=== PATIENT | female | born 1990 | race Caucasian/White ===

== ENCOUNTER 2018-11-04 20:40 | Emergency (ER) | payer SELFPAY ==
--- NOTE | 2018-11-04 21:23 | EDM.PDOC ---
ED HPI GENERAL MEDICAL PROBLEM - General Chief Complaint: Abdominal Pain Stated Complaint: ABD PAIN Time Seen by Provider: 11/04/18 21:19 Source of Information: Reports: Patient, Family History Limitations: Reports: No Limitations - History of Present Illness INITIAL COMMENTS - FREE TEXT/NARRATIVE: C/p positive test yesterday.has had abd cramps on and off. No bleeding or urinary symptoms.has a previous bad obstetric history (including septic emboli in the pelvis,GDM and is therefore worried. - Related Data Allergies Allergy/AdvReac Type Severity Reaction Status Date / Time No Known Allergies Allergy Verified 11/04/18 20:47 Home Meds: Home Meds NK [No Known Home Meds] 11/04/18 [History] ED ROS GENERAL - Review of Systems Review Of Systems: ROS reveals no pertinent complaints other than HPI. ED EXAM, GI/ABD - Physical Exam Exam: See Below Exam Limited By: No Limitations General Appearance: Alert, WD/WN Ears: Normal External Exam Nose: Normal Inspection Head: Atraumatic Neck: Normal Inspection Respiratory/Chest: No Respiratory Distress Cardiovascular: Normal Peripheral Pulses GI/Abdominal Exam: Normal Bowel Sounds, Non-Tender, No Distention Course - Vital Signs Last Recorded V/S: Last Vital Signs Temp 98.0 F 11/04/18 20:40 Pulse 65 11/04/18 20:40 Resp 17 11/04/18 20:40 BP 111/68 11/04/18 20:40 Pulse Ox 97 11/04/18 20:40 - Orders/Labs/Meds Labs: Laboratory Tests 11/04/18 11/04/18 Range/Units 20:51 20:51 Urine Color Yellow (YELLOW) Urine Appearance Clear (CLEAR) Urine pH 5.0 (5.0-6.5) Ur Specific [place] 1.025 (1.010-1.025) Urine Protein Negative (NEGATIVE) mg/dL Urine Glucose (UA) Normal (NORMAL) mg/dL Urine Ketones Negative (NEGATIVE) mg/dL Urine Occult Blood Moderate H (NEGATIVE) Urine Nitrite Negative (NEGATIVE) Urine Bilirubin Negative (NEGATIVE) Urine Urobilinogen Normal (NEGATIVE) mg/dL Ur Leukocyte Esterase Moderate H (NEGATIVE) Urine RBC 0-5 (0-5) Urine WBC 0-5 (0-5) Ur Squamous Epith Cells Moderate H (NS,R,O) Urine Bacteria Moderate H (NS) Urine HCG, Qual Positive H (NEGATIVE) Departure - Departure Time of Disposition: 21:21 Disposition: Home, Self-Care 01 Clinical Impression: - Discharge Information Referrals: PCP,None [Primary Care Provider] - - Problem List & Annotations (1) SNOMED Code(s): 23814576 Code(s): Z34.90 - ENCNTR FOR SUPRVSN OF NORMAL , UNSP, UNSP TRIMESTER Status: Acute Current Visit: Yes Qualifiers: Weeks of gestation: 8 weeks Qualified Code(s): Z3A.08 - 8 weeks gestation of - Problem List Review Problem List Initiated/Reviewed/Updated: Yes - Assessment/Plan Plan: Urine is positive for . Exam otherwise WNL. I recommend US tomorrow. Follow up with PCP.
== END 2018-11-04 21:27 | disposition home or self-care (01) ==
LOC: FB.ED 20:40
DX: Z34.91 Encounter for supervision of normal pregnancy, unspecified, first trimester (principal); Z87.59 Personal history of other complications of pregnancy, childbirth and the puerperium
CPT/HCPCS: 81001; 81025; 99284

== ENCOUNTER 2018-11-14 01:54 | Emergency (ER) | payer SELFPAY ==
[2018-11-14] MEDS ORDERED: Ciprofloxacin 500 MG Tab PO ONE ×2 (03:46→03:51)
[2018-11-14] MEDS ORDERED: Ketorolac 60 MG/2 ML SDV IM ONE (03:46)
--- NOTE | 2018-11-14 03:52 | EDM.PDOC ---
ED HPI GENERAL MEDICAL PROBLEM - General Chief Complaint: Abdominal Pain Stated Complaint: abdominal pain Time Seen by Provider: 11/14/18 01:54 Source of Information: Reports: Patient, Family History Limitations: Reports: No Limitations - History of Present Illness INITIAL COMMENTS - FREE TEXT/NARRATIVE: 28 y.o.w.f came to the ed 6 days after she underwent an of a 6 months . Pt started to have a vag bleed one abter the , performed by a HISTORIAN RESEARCH ASSISTANT. Pt has dysuria as well. No N/V/D no trauma. Pt has only minor vag bleed 1 bad per day. BP 121/77 RR 17 pulse ox 100% on RA Temp 36.6 pulse 107 Onset Date: 11/10/18 Onset Time: 08:00 Duration: Day(s):, Constant, Intermittent Location: Reports: Pelvis Bilateral Lower Abdomen Pain Score (Numeric/FACES): 9 - Related Data Allergies Allergy/AdvReac Type Severity Reaction Status Date / Time No Known Allergies Allergy Verified 11/14/18 02:02 Home Meds: Home Meds Ciprofloxacin HCl [Cipro] 500 mg PO BID #20 tablet 11/14/18 [Rx] Phenazopyridine HCl [Pyridium] 100 mg PO Q8HR #9 tablet 11/14/18 [Rx] Past Medical History - Past Health History Medical/Surgical History: Denies Medical/Surgical History Social & Family History - Family History Family Medical History: Noncontributory - Tobacco Use Smoking Status *Q: Current Every Day Smoker Years of Tobacco use: 16 Packs/Tins Daily: 1 - Caffeine Use Caffeine Use: Reports: Coffee - Recreational Drug Use Recreational Drug Use: No ED ROS GENERAL - Review of Systems Review Of Systems: See Below Constitutional: Reports: No Symptoms HEENT: Reports: No Symptoms Respiratory: Reports: No Symptoms Cardiovascular: Reports: No Symptoms Endocrine: Reports: No Symptoms GI/Abdominal: Reports: No Symptoms : Reports: Dysuria, Frequency Musculoskeletal: Reports: No Symptoms Skin: Reports: No Symptoms Neurological: Reports: No Symptoms Psychiatric: Reports: No Symptoms Hematologic/Lymphatic: Reports: No Symptoms Immunologic: Reports: No Symptoms ED EXAM, RENAL/ - Physical Exam Exam: See Below Exam Limited By: No Limitations General Appearance: Alert, WD/WN, Mild Distress Eye Exam: Bilateral Eye: Normal Inspection Ears: Normal External Exam Nose: Normal Inspection Throat/Mouth: Normal Inspection Head: Atraumatic, Normocephalic Neck: Normal Inspection, Supple, Non-Tender Respiratory/Chest: No Respiratory Distress, Lungs Clear, Normal Breath Sounds, No Accessory Muscle Use, Chest Non-Tender Cardiovascular: Normal Peripheral Pulses, Regular Rate, Rhythm, No Edema GI/Abdominal: Normal Bowel Sounds, Soft, Non-Tender (Female) Exam: Deferred Rectal (Female) Exam: Deferred Back Exam: Normal Inspection, Full Range of Motion Extremities: Normal Inspection, Normal Range of Motion Psychiatric: Normal Affect, Normal Mood Skin Exam: Warm, Dry, Intact Lymphatic: No Adenopathy Course - Vital Signs Text/Narrative:: 28 y.o.w.f came to the ed 6 days after she underwent an of a 6 months . Pt started to have a vag bleed one abter the , performed by a HISTORIAN RESEARCH ASSISTANT. Pt has dysuria as well. No N/V/D no trauma. Pt has only minor vag bleed 1 bad per day. BP 121/77 RR 17 pulse ox 100% on RA Temp 36.6 pulse 107 PE: WNWD W F with low abd. discomfort nd vag spotting 5 days after an scheduled Labs: CBC nl UA: pos for UTI Impression: S/O , UTI, Vag Bleed, minor Tx: Toradol, Cipro Reexam: Improved Plan: D/C with instructions. Last Recorded V/S: Last Vital Signs Temp 36.3 C 11/14/18 03:54 Pulse 93 11/14/18 03:54 Resp 16 11/14/18 03:54 BP 109/66 11/14/18 03:54 Pulse Ox 99 11/14/18 03:54 - Orders/Labs/Meds Orders: Active Orders 24 hr Category Date Time Status CULTURE URINE [RM] Stat Lab 11/14/18 02:59 Received Labs: Laboratory Tests 11/14/18 11/14/18 Range/Units 02:15 02:59 WBC 13.6 H (4.5-12.0) X10-3/uL RBC 4.11 (3.23-5.20) x10(6)uL Hgb 12.8 (11.5-15.5) g/dL Hct 36.7 (30.0-51.3) % MCV 89.4 (80-96) fL MCH 31.1 (27.7-33.6) pg MCHC 34.8 (32.2-35.4) g/dL RDW 12.8 (11.5-15.5) % Plt Count 264 (125-369) X10(3)uL MPV 8.3 (7.4-10.4) fL Neut % (Auto) 59.3 (46-82) % Lymph % (Auto) 30.4 (13-37) % Petroleum % (Auto) 8.2 (4-12) % Eos % (Auto) 2 (1.0-5.0) % Baso % (Auto) 1 (0-2) % Neut # (Auto) 8.1 (1.6-8.3) # Lymph # (Auto) 4.1 (0.6-5.0) # Petroleum # (Auto) 1.1 (0.0-1.3) # Eos # (Auto) 0.2 (0.0-0.8) # Baso # (Auto) 0.1 (0.0-0.2) # Urine Color [place] (YELLOW) Urine Appearance Slightly cloudy (CLEAR) Urine pH 6.5 (5.0-6.5) Ur Specific [place] 1.015 (1.010-1.025) Urine Protein 30 H (NEGATIVE) mg/dL Urine Glucose (UA) Normal (NORMAL) mg/dL Urine Ketones Negative (NEGATIVE) mg/dL Urine Occult Blood Large H (NEGATIVE) Urine Nitrite Negative (NEGATIVE) Urine Bilirubin Negative (NEGATIVE) Urine Urobilinogen 1 H (NEGATIVE) mg/dL Ur Leukocyte Esterase Small H (NEGATIVE) Urine RBC 75-100 H (0-5) Urine WBC 5-10 H (0-5) Ur Squamous Epith Cells Few H (NS,R,O) Urine Bacteria Moderate H (NS) Meds: Medications Discontinued Medications Generic Name Dose Route Start Last Admin Trade Name Freq PRN Reason Stop Dose Admin Ciprofloxacin 500 mg 11/14/18 03:46 11/14/18 03:55 Ciprofloxacin Hcl PO 11/14/18 03:47 500 mg ONETIME ONE Administration Ciprofloxacin 500 mg 11/14/18 03:51 11/14/18 04:05 Ciprofloxacin Hcl PO 11/14/18 03:52 Not Given ONETIME ONE Ketorolac Tromethamine 60 mg 11/14/18 03:46 11/14/18 03:55 Toradol IM 11/14/18 03:47 60 mg ONETIME ONE Administration Departure - Departure Time of Disposition: 03:49 Disposition: Home, Self-Care 01 Condition: Good Clinical Impression: Vaginal bleeding, abnormal, UTI (urinary tract infection) - Discharge Information Prescriptions: Phenazopyridine HCl [Pyridium] 100 mg PO Q8HR #9 tablet Ciprofloxacin HCl [Cipro] 500 mg PO BID #20 tablet Instructions: Urinary Tract Infection, Adult Referrals: PCP,None [Primary Care Provider] - Forms: ED Department Discharge Additional Instructions: Please increase water intake, please take the meds as recommended, please f/u for a pelvic US at 10.30 am today to check for retained pats of conception, please F/U with your HISTORIAN RESEARCH ASSISTANT who performed the a.s.a.p. Came back if your symptoms get worse acutely. - My Orders Last 24 Hours: My Active Orders 11/14/18 02:59 CULTURE URINE [RM] Stat - Assessment/Plan Last 24 Hours: My Active Orders 11/14/18 02:59 CULTURE URINE [RM] Stat
== END 2018-11-14 04:05 | disposition home or self-care (01) ==
LOC: FB.ED 01:54
DX: O04.6 Delayed or excessive hemorrhage following (induced) termination of pregnancy (principal); O04.88 Urinary tract infection following (induced) termination of pregnancy; F17.210 Nicotine dependence, cigarettes, uncomplicated; Z23 Encounter for immunization
CPT/HCPCS: 36415; 81001; 85025; 87086; 90471; 96372; 99283; 99284; A9270; J1885; 51701